=== PATIENT | male | born 1980 | race Caucasian/White ===

== ENCOUNTER 2020-12-18 20:50 | Emergency (ER) | payer SELFPAY ==
[~2020-12-18] VITALS: Ht 170.2 cm; Wt 74.8 kg
[2020-12-18 21:13] VITALS: BP_SYST 133
--- NOTE | 2020-12-18 21:16 | NUR ---
Patient triaged and placed in waiting room. VSS and patient appears in no acute distress at this time. Accompanied by self, awaiting available bed, and MD notified of need for MSE.
--- NOTE | 2020-12-19 00:17 | NUR ---
Patient to ER bed 4 to gown for evaluation. Side rails up.
--- NOTE | 2020-12-19 00:26 | NUR ---
Pt BIB family to ED C/O laceration to left 4th digit from knife at work Pain 8/10 no loss of sensation cap refill less than 2. VSS no s/s of acute distress
--- NOTE | 2020-12-19 01:30 | NUR ---
VSS no s/s of acute distress Resting on gurney rails up
[2020-12-19] MEDS ORDERED: LIDOCAINE 1% 10 MG/ML, 20 ML MDV INJ ONE (01:45)
--- NOTE | 2020-12-19 02:30 | NUR ---
Dr. Frederick at bedside for Lac repair procedure
[2020-12-19] MEDS ORDERED: cephALEXin 500 MG CAPSULE PO ONE (03:15)
[2020-12-19] MEDS ORDERED: DIPH-TET-PERTUS Vaccine 0.5 ML VIAL (ADACEL) I.M. ONE (03:15)
[2020-12-19] MEDS ORDERED: CEPH250C PO (03:16)
[2020-12-19] MEDS ORDERED: cephALEXin 500 MG CAPSULE ONE (03:19)
[2020-12-19 03:20] VITALS: BP_SYST 133
--- NOTE | 2020-12-19 03:20 | NUR ---
Patient given written and verbal discharge instructions and verbalizes understanding. ER MD discussed with patient the results and treatment provided. Patient in stable condition. ID arm band removed. Rx of Keflex given. Patient educated on pain management and to follow up with PMD. Pain Scale 0/10 Opportunity for questions provided and answered. Medication side effect fact sheet provided.
== END 2020-12-19 03:20 | disposition home or self-care (01) ==
LOC: SED 20:50
DX: S61.211A Laceration without foreign body of left index finger without damage to nail, initial encounter (principal); W26.0XXA Contact with knife, initial encounter; Y93.89 Activity, other specified; Y92.89 Other specified places as the place of occurrence of the external cause; Y99.8 Other external cause status
CPT/HCPCS: 12001; 90471; 90715; 99283; J2001

== ENCOUNTER 2020-12-21 12:18 | Emergency (ER) | payer MEDICAID ==
[~2020-12-21] VITALS: Ht 167.6 cm; Wt 69.4 kg
[~2020-12-21 12:18] MED LIST: CEPH250C PO
[2020-12-21 12:24] VITALS: BP_SYST 121
--- NOTE | 2020-12-21 12:28 | NUR ---
Patient to ER bed 5 to gown for evaluation. Side rails up. Report given to JANET JUAREZ.
--- NOTE | 2020-12-21 12:32 | NUR ---
Patient here in Ed for F/U after stitches placed 2 days ago. Pt's injury site look clean and dry, covered by gauze. Pt doesnt experience any pain or other complains. Complaint with medications
[2020-12-21] MEDS ORDERED: BACITRACIN 1 GM OINT TP ONE (12:45)
--- NOTE | 2020-12-21 12:51 | NUR ---
pt injury site was cleaned and oitment placed
[2020-12-21 12:54] VITALS: BP_SYST 142
--- NOTE | 2020-12-21 12:56 | NUR ---
pT dC IN STABLE CONDITION
--- NOTE | 2020-12-21 12:56 | NUR ---
Patient given written and verbal discharge instructions and verbalizes understanding. ER MD discussed with patient the results and treatment provided. Patient in stable condition. ID arm band removed. Patient educated on pain management and to follow up with PMD. Pain Scale . Opportunity for questions provided and answered. Medication side effect fact sheet provided.
== END 2020-12-21 12:54 | disposition home or self-care (01) ==
LOC: SED 12:18
DX: S61.210D Laceration without foreign body of right index finger without damage to nail, subsequent encounter (principal); Z48.00 Encounter for change or removal of nonsurgical wound dressing; Z79.899 Other long term (current) drug therapy; W45.8XXD Other foreign body or object entering through skin, subsequent encounter
CPT/HCPCS: 99282

== ENCOUNTER 2020-12-28 10:55 | Emergency (ER) | payer MEDICAID ==
[~2020-12-28] VITALS: Ht 170.2 cm; Wt 74.8 kg
[2020-12-28 10:59] VITALS: BP_SYST 130
[2020-12-28 11:15] VITALS: BP_SYST 142
[2020-12-28] MEDS ORDERED: BACITRACIN 1 GM OINT TP ONE ×2 (11:30)
[2020-12-28 11:37] VITALS: BP_SYST 142
== END 2020-12-28 11:36 | disposition home or self-care (01) ==
LOC: SED 10:55
DX: S61.210D Laceration without foreign body of right index finger without damage to nail, subsequent encounter (principal); Z48.02 Encounter for removal of sutures; Z79.899 Other long term (current) drug therapy; W45.8XXD Other foreign body or object entering through skin, subsequent encounter
CPT/HCPCS: 99282